=== PATIENT | female | born 1965 | race Caucasian/White ===

== ENCOUNTER 2017-04-27 13:19 | Emergency (ER) | payer OTHER ==
[~2017-04-27] VITALS: Ht 160 cm; Wt 97.7 kg
[2017-04-27 13:21] VITALS: TEMP 36.3; Ht 160 cm; Wt 97.7 kg
--- NOTE | 2017-04-27 14:36 | DIAGNOSTIC IMAGING REPORT ---
RIGHT WRIST W/NAVICULAR MIN 3 VIEWS CLINICAL HISTORY: Pain status post trauma COMPARISON: None. DISCUSSION: No acute fractures are visualized. There is mild narrowing of the radiocarpal joint. There is ulnar styloid erosion. There are cystic changes within the triquetrum. There are arthritic changes in the first carpal metacarpal joint. IMPRESSION: 1. No acute fractures 2. 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 Ulnar styloid erosion. Cystic change within the triquetrum. Electronically signed by: Collin Lizama M.D. 04/27/2017 2:34 PM Dictated Date/Time: 04/27/2017 2:33 PM
--- NOTE | 2017-04-27 14:46 | DIAGNOSTIC IMAGING REPORT ---
RIGHT HAND MIN 3 VIEWS ROUTINE CLINICAL HISTORY: 52 years-old Female presenting with R hand and wrist pain. TECHNIQUE: Frontal, oblique, and lateral views of the right hand were obtained. COMPARISON: 2010. FINDINGS: Radiocarpal and intercarpal articulations preserved. No malalignment. No acute fracture. IMPRESSION: 1. No acute osseous injury of the right hand. Electronically signed by: Lucio Noel M.D. 04/27/2017 2:45 PM Dictated Date/Time: 04/27/2017 2:43 PM
[2017-04-27] MEDS ORDERED: TRAM-10 PO (15:24)
[2017-04-27 15:31] VITALS: BP 130/101; PULSE 75; O2SAT 95
--- NOTE | 2017-04-27 21:11 | EMERGENCY ROOM VISIT NOTE ---
ED Visit Note First contact with patient: 13:49 Chief Complaint: Right hand and wrist pain. History of Present Illness: Ms. Juan is a 52-year-old white female who ambulates into the ED complaining of right hand and wrist pain. Patient denies any previous significant past medical history. Patient reports approximately 45 minutes ago she was playing on her cell phone. She reports she supinated her forearm and felling a popping sensation in the posterior aspect of the wrist and hand and developed severe pain. Currently patient is unable to describe her discomfort but reports that it severe and rates her discomfort 8/10. Her pain is located over the wrist and the posterior hand from the MCP joints to the wrist. Her pain worsens with palpation of this area, movements of the wrist and pronation and supination of the forearm. She has not identified any alleviating factors related to the pain. She has not taken any medications for pain prior to arrival at the hospital. Associated with her pain she reports she is having paresthesias through all aspects of the hands and fingers. She denies any fevers, chills, sweats, proximal forearm, elbow pain, shoulder pain, neck pain, hand weakness, skin eruptions, skin color changes. Review of Systems: As noted above in history of present illness. 5 body systems were reviewed and found to be negative as noted above. Past Medical History: Status post cholecystectomy and appendectomy. Current Medications: Patient denies. Allergies to Medications: Tylenol, codeine and aspirin. Social History: Patient is not employed; she feels safe in her home environment ; she admits to smoking one pack a cigarettes per day; she denies alcohol use. Physical Examination: Vital Signs: Date Time Temp Pulse Resp B/P (MAP) Pulse Ox O2 Delivery O2 Flow Rate FiO2 04/27/17 15:31 75 18 130/101 95 04/27/17 13:21 36.3 88 19 128/71 97 Room Air GENERAL: 52-year-old female in moderate distress due to pain, nontoxic-appearing , afebrile and hemodynamically stable. Patient tearful and anxious. NEUROLOGICAL: Awake, alert and oriented to person, place and time. Answering questions appropriately and following commands. SKIN: Warm, dry and pink. No soft tissue eruptions or trauma noted. RIGHT UPPER EXTREMITY: No gross bony deformity. No tenderness throughout the shoulder, elbow or proximal forearm. Mild tenderness over the distal radius and ulna and overall the carpals. There is also tenderness over the posterior aspect of all the metacarpals. I do not appreciate any bony deformity or crepitus. There is no swelling or erythema in this area. The rest of the hand is without tenderness but patient reports she is experiencing paresthesias. She was able to distinguish light sensations through all dermatomes of the hand. The fingers were warm and pink and capillary refill is brisk. ED Course: Patient is assessed as noted above. Patient's medication list was reviewed. Right Hand X-Rays: Was read by myself and the radiologist showing no acute or cranial fractures, dislocations or malignancies. Right Wrist X-Rays: Was read by myself and the radiologist showing no fractures or dislocations. Radiologist notes arthritic changes at the level of the first CMC joint, ulnar styloid erosions and cystic changes within the triquetrum. Patient was given ice for pain and comfort. Patient was placed in a wrist lacer splint. Patient was educated about today's findings and instructed on her treatment plan ; she verbalizes understanding and agreement with this plan. Clinical Impression: Right wrist and hand pain. Decision-Making: Initially my differential diagnosis I considered dislocation, fracture, tendinitis and other causes. Disposition: Patient discharged home in stable condition; prior to departure she subjectively reported she was feeling the same but looked much more comfortable and was no longer tearful. Plan: Patient was prescribed Ultram 50 mg every 6 hours as needed for pain. Comfort measures were discussed with the patient include splint use, ice and rest. Patient was encouraged to follow-up with orthopedics for specialty care and evaluation. Patient was encouraged return to the ED for worsening/uncontrolled pain, uncontrolled swelling, worsening finger paresthesias or she would develop any numbness or weakness.
== END 2017-04-27 15:33 | disposition home or self-care (01) ==
LOC: C.EDB 13:21 → C.EDD 15:33
DX: M79.641 Pain in right hand (principal); M25.531 Pain in right wrist; F17.210 Nicotine dependence, cigarettes, uncomplicated

== ENCOUNTER 2017-07-27 09:57 | Emergency (ER) | payer OTHER ==
[~2017-07-27] VITALS: Ht 160 cm; Wt 96.5 kg
[~2017-07-27 09:57] MED LIST: TRAM-10 PO
[2017-07-27 09:59] VITALS: TEMP 36.7; Ht 160 cm; Wt 96.5 kg
[2017-07-27 10:32] LABS: URINE APPEARANCE CLEAR (CLEAR); URINE BILIRUBIN NEG (NEG); URINE COLOR DK YELLOW; URINE EPITHELIAL CELL AUTO >30 /lpf (0-5); URINE NITRITE NEG (NEG); URINE SPECIFIC GRAVITY 1.022 (1.000-1.030); UROBILINOGEN NEG (NEG); ZZUR CULT IF INDIC CLEAN CATCH NO
[2017-07-27 10:32] LABS: BASO % 0.5 %; BASO ABS # 0.02 K/uL (0-0.2); COMPLETE YES; EOS % 3.9 %; HEMATOCRIT 39.7 % (37-47); LYMPH % 42.5 %; LYMPH ABS # 1.74 K/uL (1.2-3.4); MEAN CELL VOLUME 94.5 fL (80-100); MEAN CORPUSCULAR HEMOGLOBIN 32.1 pg (25-34); MEAN PLATELET VOLUME 9.7 fL (7.4-10.4); MONO % 13.4 %; NEUT % 39.7 %; PLATELET COUNT 194 K/uL (130-400); WHITE BLOOD COUNT 4.09 K/uL (4.8-10.8)
[2017-07-27 10:33] LABS: MANUAL MICROSCOPIC REQUIRED? NO; REVIEW REQ? NO
--- NOTE | 2017-07-27 10:34 | EMERGENCY ROOM VISIT NOTE ---
History Report prepared by Ely: Noé Garber Under the Supervision of: Dr. Paramjit Thrasher M.D. First contact with patient: 10:06 Chief Complaint: ABDOMINAL PAIN Stated Complaint: LOWER STOMACH PAIN Nursing Triage Summary: pt reports " I started with some lower back and low abdomen pain X 1 week, also my birdie harrison ,this started last night " . + nausea History of Present Illness The patient is a 52 year old female who presents to the Emergency Room with complaints of lower abdominal pain for the past week. She currently rates her discomfort as a 9/10 in severity. The patient additionally states that she has been having some back pain, and the pain is going down into her legs. She states that she is currently nauseous, and she has chest pain which started yesterday. The patient has a history of UTIs, and she states that this is similar. She additionally has a history of an appendectomy and cholecystectomy, and she denies any history of kidney stones. Pt denies LOC, headache, fevers, chills, diaphoresis, visual changes, neck pain, breathing difficulties, vomiting, back pain, melena, hematochezia, urinary symptoms, numbness, weakness , lymphadenopathy, rash, or other complaints. Source of History: patient Onset: a week ago Position: abdomen Symptom Intensity: 9/10 Timing: constant Associated Symptoms: + chest pain, + nausea Review of Systems See HPI for pertinent positives and negatives. A total of ten systems were reviewed and were otherwise negative. Past Medical & Surgical Medical Problems: (1) Appendectomy (2) Cholecystectomy (3) History of - tubal ligation Social History Smoking Status: Current Every Day Smoker Alcohol Use: none Marital Status: in relationship Housing Status: lives with significant other Occupation Status: unemployed Current/Historical Medications Scheduled PRN Dicyclomine Hcl (Bentyl), 20 MG PO Q6 PRN for Pain Allergies Coded Allergies: Acetaminophen (Unverified Allergy, Unknown, none, 07/27/17) Codeine (Verified Allergy, Unknown, 07/27/17) Replaces CODEINE PHOSP Penicillins (Verified Allergy, Unknown, 07/27/17) Aspirin (Verified Adverse Reaction, Mild, N/V, 07/27/17) Physical Exam Vital Signs Date Time Temp Pulse Resp B/P (MAP) Pulse Ox O2 Delivery O2 Flow Rate FiO2 07/27/17 12:37 70 20 132/75 95 10/13/17 12:18 65 07/27/17 11:25 70 20 128/68 98 Room Air 07/27/17 09:59 36.7 84 20 124/79 97 Room Air Physical Exam GENERAL: Awake, alert, uncomfortable-appearing, in no distress HENT: Normocephalic, atraumatic. Oropharynx unremarkable. EYES: Normal conjunctiva. Sclera non-icteric. NECK: Supple. No nuchal rigidity. FROM. No JVD. RESPIRATORY: Clear to auscultation. CARDIAC: Regular rate, normal rhythm. Extremities warm and well perfused. Pulses equal. ABDOMEN: Left upper, left lower, and suprapubic tenderness. Soft, non- distended. No rebound or guarding. No masses. RECTAL: Deferred. MUSCULOSKELETAL: Chest examination reveals no tenderness. The back is symmetrical on inspection without obvious abnormality. There is no CVA tenderness to palpation. No joint edema. LOWER EXTREMITIES: Calves are equal size bilaterally and non-tender. No edema. No discoloration. NEURO: Normal sensorium. No sensory or motor deficits noted. SKIN: No rash or jaundice noted. Medical Decision & Procedures ER Provider Diagnostic Interpretation: Radiology results as stated below per my review and radiologist interpretation: ABDOMEN AND PELVIS CT WITHOUT CONTRAST CT DOSE: 1044.27 mGycm HISTORY: lower abd pain radiating to the groin TECHNIQUE: Multiaxial CT images of the abdomen and pelvis were performed without contrast. A dose lowering technique was utilized adhering to the principles of ALARA. COMPARISON STUDY: Abdomen and pelvis CT 11/15/2012. FINDINGS: The lung bases are clear. No suspicious lytic or blastic osseous lesions. Cholecystectomy. The unenhanced liver, spleen pancreas, and adrenal glands are unremarkable. Normal right kidney. Stable focal scarring within the upper pole the left kidney. No renal or ureteral stones. No hydronephrosis. No retroperitoneal lymphadenopathy. The bladder, uterus, bilateral adnexa are unremarkable. Suboptimal evaluation for bowel pathology due to the lack of intravenous and oral contrast. However, there is no definite bowel wall thickening or obstruction. Colonic diverticulosis. IMPRESSION: 1. No definite bowel wall thickening or obstruction. 2. No renal or ureteral stones. No hydronephrosis. 3. Colonic diverticulosis. 4. Cholecystectomy. Electronically signed by: Truman Springer M.D. 07/27/2017 11:09 AM Dictated Date/Time: 07/27/2017 10:58 AM Laboratory Results 07/27/17 10:20 Red Blood Count 4.20, Mean Corpuscular Volume 94.5, Mean Corpuscular Hemoglobin 32.1, Mean Corpuscular Hemoglobin Concent 34.0, Mean Platelet Volume 9.7, Neutrophils (%) (Auto) 39.7, Lymphocytes (%) (Auto) 42.5, Monocytes (%) (Auto) 13.4, Eosinophils (%) (Auto) 3.9, Basophils (%) (Auto) 0.5, Neutrophils # (Auto ) 1.62, Lymphocytes # (Auto) 1.74, Monocytes # (Auto) 0.55, Eosinophils # (Auto ) 0.16, Basophils # (Auto) 0.02 07/27/17 10:20 Test 07/27/17 10:10 07/27/17 10:20 Urine Color DK YELLOW Urine Appearance CLEAR (CLEAR) Urine pH 6.0 (4.5-7.5) Urine Specific [place] 1.022 (1.000-1.030) Urine Protein NEG (NEG) Urine Glucose (UA) NEG (NEG) Urine Ketones NEG (NEG) Urine Occult Blood NEG (NEG) Urine Nitrite NEG (NEG) Urine Bilirubin NEG (NEG) Urine Urobilinogen NEG (NEG) Urine Leukocyte Esterase SMALL (NEG) Urine WBC (Auto) 1-5 /hpf (0-5) Urine RBC (Auto) 0-4 /hpf (0-4) Urine Hyaline Casts (Auto) 1-5 /lpf (0-5) Urine Epithelial Cells (Auto) >30 /lpf (0-5) Urine Bacteria (Auto) NEG (NEG) White Blood Count 4.09 K/uL (4.8-10.8) Red Blood Count 4.20 M/uL (4.2-5.4) Hemoglobin 13.5 g/dL (12.0-16.0) Hematocrit 39.7 % (37-47) Mean Corpuscular Volume 94.5 fL (80-100) Mean Corpuscular Hemoglobin 32.1 pg (25-34) Mean Corpuscular Hemoglobin Concent 34.0 g/dl (32-36) Platelet Count 194 K/uL (130-400) Mean Platelet Volume 9.7 fL (7.4-10.4) Neutrophils (%) (Auto) 39.7 % Lymphocytes (%) (Auto) 42.5 % Monocytes (%) (Auto) 13.4 % Eosinophils (%) (Auto) 3.9 % Basophils (%) (Auto) 0.5 % Neutrophils # (Auto) 1.62 K/uL (1.4-6.5) Lymphocytes # (Auto) 1.74 K/uL (1.2-3.4) Monocytes # (Auto) 0.55 K/uL (0.11-0.59) Eosinophils # (Auto) 0.16 K/uL (0-0.5) Basophils # (Auto) 0.02 K/uL (0-0.2) RDW Standard Deviation 43.4 fL (36.4-46.3) RDW Coefficient of Variation 12.7 % (11.5-14.5) Immature Granulocyte % (Auto) 0.0 % Immature Granulocyte # (Auto) 0.00 K/uL (0.00-0.02) Anion Gap 8.0 mmol/L (3-11) Est Creatinine Clear Calc Drug Dose 72.8 ml/min Estimated GFR () 75.0 Estimated GFR (Non- 64.7 BUN/Creatinine Ratio 13.5 (10-20) Calcium Level 8.7 mg/dl (8.5-10.1) Total Bilirubin 0.4 mg/dl (0.2-1) Direct Bilirubin < 0.1 mg/dl (0-0.2) Aspartate Amino Transf (AST/SGOT) 30 U/L (15-37) Alanine Aminotransferase (ALT/SGPT) 35 U/L (12-78) Alkaline Phosphatase 138 U/L (45-117) Troponin I < 0.015 ng/ml (0-0.045) Total Protein 7.5 gm/dl (6.4-8.2) Albumin 3.8 gm/dl (3.4-5.0) Lipase 133 U/L (73-393) Laboratory results reviewed by me ECG Indication: abdominal pain Rate (beats per minute): 76 Rhythm: normal sinus Findings: no acute ischemic change, no ectopy ED Course 1006: The patient was evaluated in room B11. A complete history and physical exam was performed. 1153: I reevaluated the patient, and she is doing well. 1217: I reevaluated the patient. Discussed results and discharge instructions: She verbalized understanding and agreement. The patient is ready for discharge. Medical Decision Triage Nursing notes reviewed. The patient's presentation and history were concerning for left sided abdominal pain and urinary symptoms. Etiologies such as UTI,diverticulitis, obstruction, inflammatory bowel disease , renal colic, PUD, biliary pathology, pancreatitis, mesenteric ischemia, aortic pathology, infections, genitourinary, perforated viscus, appendicitis, as well as others were entertained. The patient was evaluated. She was offered pain medication but declined. Blood work and imaging were ordered. Urinalysis performed. CT imaging did not reveal any evidence of intra-abdominal pathology. Specifically no diverticulitis or colitis over the left upper and lower side of her abdomen where she was tender. A urine culture is pending. The patient is doing very well. She notes having a change in her bowels recently and having some issues with constipation. There is not a significant fecal load on CT scan. I did discuss use a stool softener. She will also be given Bentyl. If she worsens in any way she will be back. She does not have any symptoms the pain just radiated towards the groin from the left side of her abdomen. The patient has a negative ECG and troponin. She notes stress causes her to get this pain. She had symptoms all day today. By the evaluation outlined above other emergent etiologies such as those listed in the differential, as well as others, were deemed relatively unlikely. The patient was educated about the findings as listed above. All questions were answered and the patient was pleased with the treatment. Return instructions were outlined and the patient was discharged in stable condition. The patient was referred to her PCP for follow-up for a recheck of the current condition. Medication Reconcilliation Current Medication List: was personally reviewed by me Blood Pressure Screening Patient's blood pressure: Normal blood pressure Impression Primary Impression: Left sided abdominal pain Additional Impressions: Symptoms of urinary tract infection Left sided chest pain Scribe Attestation The scribe's documentation has been prepared under my direction and personally reviewed by me in its entirety. I confirm that the note above accurately reflects all work, treatment, procedures, and medical decision making performed by me. Departure Information Dispostion Home / Self-Care Prescriptions Dicyclomine Hcl (BENTYL) 20 Mg Tab 20 MG PO Q6 Y for Pain, #20 TAB Prov: Paramjit Thrasher MD 07/27/17 Referrals No Doctor, Assigned (PCP) Forms Call Back Authorization, HOME CARE DOCUMENTATION FORM, IMPORTANT VISIT INFORMATION Patient Instructions My [facility] Additional Instructions ABDOMINAL PAIN INSTRUCTIONS: Bentyl(dicyclomine) 20 mg: Take one tablet 4 times daily as needed for abdominal pain. Discontinue this medication if you develop any rash, itching, increased abdominal pain, heartburn, increased nausea, constipation, or as needed. Rest and drink plenty of fluids as tolerated. Slow sips of water or sports drinks are recommended instead of large amounts all at once. Continue current medications. Once your stomach is settled start with a clear liquid diet (jello, soup broth, etc.) and then advance as tolerated. You should avoid full, heavy meals for about 24 hrs from the time your symptoms resolved. Return to the ER immediately for worsening or persistent abdominal pain, vomiting, fevers, chest pains, difficulty breathing, black or bloody stools, worsening of your condition, or as needed. Follow up with your primary physician first thing next week for recheck of your current condition. Problem Qualifiers
--- NOTE | 2017-07-27 11:10 | DIAGNOSTIC IMAGING REPORT ---
ABDOMEN AND PELVIS CT WITHOUT CONTRAST CT DOSE: 1044.27 mGycm HISTORY: lower abd pain radiating to the groin TECHNIQUE: Multiaxial CT images of the abdomen and pelvis were performed without contrast. A dose lowering technique was utilized adhering to the principles of ALARA. COMPARISON STUDY: Abdomen and pelvis CT 11/15/2012. FINDINGS: The lung bases are clear. No suspicious lytic or blastic osseous lesions. Cholecystectomy. The unenhanced liver, spleen pancreas, and adrenal glands are unremarkable. Normal right kidney. Stable focal scarring within the upper pole the left kidney. No renal or ureteral stones. No hydronephrosis. No retroperitoneal lymphadenopathy. The bladder, uterus, bilateral adnexa are unremarkable. Suboptimal evaluation for bowel pathology due to the lack of intravenous and oral contrast. However, there is no definite bowel wall thickening or obstruction. Colonic diverticulosis. IMPRESSION: 1. No definite bowel wall thickening or obstruction. 2. No renal or ureteral stones. No hydronephrosis. 3. Colonic diverticulosis. 4. Cholecystectomy. Electronically signed by: Truman Springer M.D. 07/27/2017 11:09 AM Dictated Date/Time: 07/27/2017 10:58 AM
[2017-07-27 11:39] LABS: ALT/SGPT 35 U/L (12-78); AST/SGOT 30 U/L (15-37); BLOOD UREA NITROGEN 14 mg/dl (7-18); BUN/CREATININE RATIO 13.5 (10-20); CALCIUM 8.7 mg/dl (8.5-10.1); CARBON DIOXIDE 24 mmol/L (21-32); CHLORIDE 109 mmol/L (98-107); GLUCOSE 87 mg/dl (70-99); SODIUM 141 mmol/L (136-145)
[2017-07-27 11:44] LABS: ALKALINE PHOSPHATASE 138 U/L (45-117)
[2017-07-27] MEDS ORDERED: DICY20TA35 PO (12:15)
[2017-07-27 12:37] VITALS: BP 132/75; PULSE 70; O2SAT 95
== END 2017-07-27 12:38 | disposition home or self-care (01) ==
LOC: C.EDB 09:58
DX: R10.32 Left lower quadrant pain (principal); R10.12 Left upper quadrant pain; M54.9 Dorsalgia, unspecified; R11.0 Nausea; R07.9 Chest pain, unspecified; F17.200 Nicotine dependence, unspecified, uncomplicated; Z87.440 Personal history of urinary (tract) infections; Z98.51 Tubal ligation status

== ENCOUNTER 2017-08-09 10:10 | Emergency (ER) | payer OTHER ==
[~2017-08-09] VITALS: Ht 160 cm; Wt 98.0 kg
[2017-08-09 10:25] VITALS: TEMP 36.9; Ht 160 cm; Wt 98.0 kg
[2017-08-09] MEDS ORDERED: IBUPROFEN 200 MG TAB PO STA (11:08)
--- NOTE | 2017-08-09 11:52 | EMERGENCY ROOM VISIT NOTE ---
ED Visit Note First contact with patient: 11:01 CHIEF COMPLAINT: knee pain HISTORY OF PRESENT ILLNESS: This 52-year-old female patient presents to the emergency department 2 days after sustaining an injury to the right knee when she accidentally fell into a hole twisting it. The patient denies any other injuries besides their knee. The patient denies swelling or bruising. There is pain with any movement of the knee. They rate the pain as throbbing and 5/ 10. The patient states they are not to walk on it. No numbness or tingling. No previous injuries to this knee. No ankle, foot or hip pain. REVIEW OF SYSTEMS: A 6 system review of systems was completed with positives and pertinent negatives listed in the HPI. ALLERGIES: Tylenol, aspirin, codeine, penicillin, morphine MEDICATIONS: Reviewed PMH: Status post cholecystectomy appendectomy SOCIAL HISTORY: Lives at home with family PHYSICAL EXAM: Vital Signs: Reviewed Nurse's notes, vital signs stable. GENERAL : 52-year-old female, no acute distress, but appears in pain, well-developed, well-nourished. MENTAL STATUS: Alert, oriented to person place and time, and cooperative. MUSCULOSKELETAL: The right knee is not swollen. There is no ecchymosis. There is no joint effusion present. The patient is tender over the medial aspect of the knee. There is no joint line tenderness. The patella does not subluxate. Range of motion is limited secondary to pain. Strength of the quads and hamstrings is 5/5. Ayaan's is negative. Ankush's and Anterior Drawer tests are negative. There is pain with varus and valgus stressing. The foot and toes are warm and well-perfused. Dorsalis pedis pulse 2+. Sensation to pain and light touch is intact. Capillary refill less than 2 seconds. EMERGENCY DEPARTMENT COURSE: I examined the patient. She was given ibuprofen 400 mg for pain X-rays of the right knee were reviewed IMPRESSION: No acute bony abnormality is seen in the right knee. Electronically signed by: Charles Rivas M.D. 08/09/2017 12:02 PM Dictated Date/Time: 08/09/2017 12:01 PM The patient was placed in a knee immobilizer under my direction and the position was satisfactory. The patient was instructed on the use of crutches. The patient was discharged home in good condition. DIAGNOSIS: Right knee sprain DISCHARGE INSTRUCTIONS: Ice and elevate knee for swelling and pain. Wear knee immobilizer when up and about. Use crutches - minimal weight on foot. Ibuprofen 400 mg every 6 hrs for pain. If there is no improvement in the pain within the next 3-5 days, please contact your orthopedic doctor. A number has been provided. Please return to the emergency department with any new or worsening symptoms. This chart was completed in part utilizing [employer] Speech Voice Recognition software. Attempts were made to minimize the grammatical errors, random word insertions, pronoun errors and incomplete sentences. Any formal questions or concerns about the content, text or information contained within the body of this dictation should be directly addressed to the provider for clarification.
--- NOTE | 2017-08-09 12:04 | DIAGNOSTIC IMAGING REPORT ---
RIGHT KNEE 3 VIEWS CLINICAL HISTORY: Right knee injury. FINDINGS: AP, crosstable lateral, and sunrise views of the right knee are obtained. No prior studies are available for comparison at the time of dictation. The skeletal structures are well mineralized. No fracture is seen. The joint spaces of the knee are preserved. There is no joint effusion. The overlying soft tissues are within normal limits. IMPRESSION: No acute bony abnormality is seen in the right knee. Electronically signed by: Charles Rivsa M.D. 08/09/2017 12:02 PM Dictated Date/Time: 08/09/2017 12:01 PM
[2017-08-09 12:40] VITALS: BP 114/66; PULSE 71; O2SAT 96
== END 2017-08-09 13:02 | disposition home or self-care (01) ==
LOC: C.EDB 10:11 → C.EDD 13:02
DX: S83.91XA Sprain of unspecified site of right knee, initial encounter (principal); X50.9XXA Other and unspecified overexertion or strenuous movements or postures, initial encounter

== ENCOUNTER 2017-11-06 08:34 | Emergency (ER) | payer OTHER ==
[~2017-11-06] VITALS: Ht 160 cm; Wt 98.0 kg
[2017-11-06 08:39] VITALS: TEMP 36.6; Ht 160 cm; Wt 98.0 kg
[2017-11-06 09:29] VITALS: BP 150/68; PULSE 74; O2SAT 98
--- NOTE | 2017-11-06 17:15 | EMERGENCY ROOM VISIT NOTE ---
History First contact with patient: 08:46 Chief Complaint: OTHER COMPLAINT Stated Complaint: EXPOSURE History of Present Illness The patient is a 52 year old female who presents to the Emergency Room with complaints of exposure to Freon 12. The patient reports that she was attempting to scrape ice from a refrigerator when she hit the coil and punctured it. The patient reports she was sprayed on her clothing and hair. The patient is uncertain but thinks that she may have gotten a little bit of the spray in her left eye and mouth. She denies any excessive tearing or pain of the eye. She denies any runny nose,/tongue/throat swelling, cough, shortness of breath or chest pain. The patient denies any pain on my exam. She presents via [facility] ambulance for evaluation. Review of Systems 10 system review was performed and was negative except for pertinent positives and negatives as indicated in history of present illness Past Medical/Surgical History Medical Problems: (1) Appendectomy (2) Cholecystectomy (3) History of - tubal ligation Family History Unremarkable Social History Smoking Status: Current Every Day Smoker Alcohol Use: none Marital Status: in relationship Housing Status: lives with significant other Occupation Status: unemployed Current/Historical Medications No Active Prescriptions or Reported Meds Physical Exam Vital Signs Date Time Temp Pulse Resp B/P (MAP) Pulse Ox O2 Delivery O2 Flow Rate FiO2 11/06/17 09:29 74 18 150/68 98 11/06/17 08:39 36.6 78 18 146/68 98 Room Air Physical Exam CONSTITUTIONAL: Healthy and well nourished. Alert and oriented X 3 with positive affect. Patient does not appear in any acute distress. HEENT: Normocephalic, atraumatic. Pupils equal, round and reactive. No facial erythema, edema or open wounds. The patient has no erythema or conjunctival injection of the left eye. Nares are clear. OROPHARYNX: No intraoral erythema or angioedema noted. NECK: Full active range of motion without discomfort. RESPIRATORY: Clear to auscultation bilaterally with no wheezing, crackles, rhonchi or stridor. CARDIOVASCULAR: Regular rate and rhythm with no murmurs, rubs or gallops. MUSCULOSKELETAL: Full range of motion of all joints without discomfort. INTEGUMENTARY: No rash or other significant dermatologic conditions noted. NEUROLOGIC: No focal neurologic deficits noted. Medical Decision & Procedures ED Course Patient history and physical exam were performed. Nurse's notes were reviewed. Vital signs were reviewed and were normal. The patient does not appear in any acute distress. She appears in no respiratory distress, and has no evidence for soft tissue irritation, conjunctival injection or angioedema. Nursing did contact poison control who suggested that irrigation be performed of the eyes if the patient had any significant eye involvement area the patient denies any eye discomfort, therefore I do not feel that irrigation is needed. She denies any other symptoms at this time. I did encourage her to go home and shower to get all remaining residue from her hair and clothing. She was instructed to return to the emergency department any developing symptoms of concern, including facial swelling, difficulty breathing, wheezing, chest pain or other concerning symptoms. The patient was happy with plan of care, and voiced understanding of all discharge instructions. Medical Decision Impression Primary Impression: Freon exposure Departure Information Dispostion Home / Self-Care Condition GOOD Prescriptions No Active Prescriptions or Reported Meds Forms HOME CARE DOCUMENTATION FORM, IMPORTANT VISIT INFORMATION Patient Instructions My [facility] [email or web address] Additional Instructions Suggest showering when he gets home, and changed to fresh clothing. Return to the emergency department for any developing eye discomfort, shortness of breath, chest pain or worsening cough.
== END 2017-11-06 09:30 | disposition home or self-care (01) ==
LOC: EDBD 08:34 → C.EDA 08:34
DX: Z77.098 Contact with and (suspected) exposure to other hazardous, chiefly nonmedicinal, chemicals (principal); F17.200 Nicotine dependence, unspecified, uncomplicated

== ENCOUNTER 2017-11-28 10:12 | Emergency (ER) | payer OTHER ==
[~2017-11-28] VITALS: Ht 160 cm; Wt 96.0 kg
[2017-11-28 10:24] VITALS: Ht 160 cm; Wt 96.0 kg
[2017-11-28] MEDS ORDERED: OXYCODONE HCL IR 5 MG TAB (IMMEDIATE RELEASE) PO STA (10:54)
[2017-11-28] MEDS ORDERED: IBUPROFEN 600 MG TAB PO STA (11:01)
--- NOTE | 2017-11-28 11:23 | DIAGNOSTIC IMAGING REPORT ---
L KNEE 3 VIEWS CLINICAL HISTORY: Left knee pain following fall COMPARISON: None FINDINGS: Alignment of the left knee is anatomic. No fracture or joint effusion is present. There is minimal spurring of the patella at the insertion of quadriceps. Left knee joint spaces are preserved. IMPRESSION: No acute fracture or joint effusion of the left knee. Electronically signed by: Liban Wilhelm M.D. 11/28/2017 11:21 AM Dictated Date/Time: 11/28/2017 11:21 AM
--- NOTE | 2017-11-28 11:24 | DIAGNOSTIC IMAGING REPORT ---
L FEMUR 2 VIEWS ROUTINE CLINICAL HISTORY: L knee/upper leg pain. COMPARISON: CT of the abdomen and pelvis July 27, 2017. FINDINGS: No acute fracture of the left femur is identified. Alignment of left hip and left knee is anatomic. There is mild osteophytosis of the left hip. IMPRESSION: No acute fracture of the left femur. Electronically signed by: Liban Wilhelm M.D. 11/28/2017 11:22 AM Dictated Date/Time: 11/28/2017 11:22 AM
[2017-11-28 12:07] VITALS: BP 137/63; PULSE 66; TEMP 36.5; O2SAT 99
--- NOTE | 2017-11-28 14:28 | EMERGENCY ROOM VISIT NOTE ---
History First contact with patient: 10:28 Chief Complaint: FALL Stated Complaint: HURT LEFT KNEE/HIP,FALL History of Present Illness The patient is a 52 year old female who presents to the Emergency Room with complaints of left lower extremity pain after she slipped and fell onto ice around 7:30 AM this morning. The patient reports falling directly on her left left knee, but has pain radiating into the upper leg and hip region. She denies head injury, back pain or paresthesias/numbness of the lower extremities. She rates her discomfort a 10 out of 10. Tetanus immunization is up-to-date. Review of Systems 10 system review was performed and was negative except for pertinent positives and negatives as indicated in history of present illness Past Medical/Surgical History Medical Problems: (1) Appendectomy (2) Cholecystectomy (3) History of - tubal ligation Family History Unremarkable Social History Smoking Status: Current Every Day Smoker Alcohol Use: none Marital Status: in relationship Housing Status: lives with significant other Occupation Status: unemployed Current/Historical Medications No Active Prescriptions or Reported Meds Physical Exam Vital Signs Date Time Temp Pulse Resp B/P (MAP) Pulse Ox O2 Delivery O2 Flow Rate FiO2 11/28/17 12:07 36.5 66 18 137/63 99 Room Air 11/28/17 11:19 36.6 72 18 149/73 95 Room Air 11/28/17 10:24 36.7 80 18 132/84 97 Room Air Physical Exam CONSTITUTIONAL: Healthy and well nourished. Alert and oriented X 3 with positive affect. Patient does not appear in any acute distress on exam. HEENT: Normocephalic, atraumatic. Pupils equal, round and reactive. NECK: Full active range of motion without discomfort. RESPIRATORY: Clear to auscultation bilaterally with no wheezing, crackles, rhonchi or stridor. CARDIOVASCULAR: Regular rate and rhythm with no murmurs, rubs or gallops. GASTROINTESTINAL: Bowel sounds present in all quadrants. Soft and nontender to palpation. MUSCULOSKELETAL: Examination shows a superficial abrasion just superior to the tibial tubercle. The patient is able to straight leg raise. She has generalized tenderness to palpation about the entire anterior knee region. She also has discomfort through the proximal thigh and lateral hip region. Pelvis stable with rock. No focal tenderness to palpation through the central lumbar spine or SI joints. INTEGUMENTARY: No rash or other significant dermatologic conditions noted. NEUROLOGIC: No focal neurologic deficits noted. Left lower extremity is sensory intact. Medical Decision & Procedures ER Provider Diagnostic Interpretation: My interpretation of left knee x-rays does not show any acute fractures, dislocation or joint effusion. Radiologist report is as follows: L KNEE 3 VIEWS CLINICAL HISTORY: Left knee pain following fall COMPARISON: None FINDINGS: Alignment of the left knee is anatomic. No fracture or joint effusion is present. There is minimal spurring of the patella at the insertion of quadriceps. Left knee joint spaces are preserved. IMPRESSION: No acute fracture or joint effusion of the left knee. My interpretation of left femur x-rays does not show any acute fractures or hip dislocation. Radiologist report is as follows: L FEMUR 2 VIEWS ROUTINE CLINICAL HISTORY: L knee/upper leg pain. COMPARISON: CT of the abdomen and pelvis July 27, 2017. FINDINGS: No acute fracture of the left femur is identified. Alignment of left hip and left knee is anatomic. There is mild osteophytosis of the left hip. IMPRESSION: No acute fracture of the left femur. Medications Administered Medications (Trade) Dose Ordered Sig/Sisi Route Start Time Stop Time Status Last Admin Dose Admin Ibuprofen (Motrin Tab) 600 mg NOW STAT PO 11/28/17 11:01 11/28/17 11:02 DC 11/28/17 11:19 600 MG ED Course Patient history and physical exam were performed. Nurse's notes were reviewed. The patient appears in moderately severe discomfort. An order was placed for oxycodone 5 mg, but the patient refused, and requested Motrin instead. She was administered ibuprofen 600 mg. X-rays of the left knee and femur were both normal. The patient was encouraged to intermittently apply ice to areas of discomfort. She was also instructed to keep her wound clean and covered with an antibiotic ointment and dressing until symptoms improve. A knee immobilizer and walker were dispensed. The patient was encouraged to be careful with ambulation that she does not fall. I did encourage her to follow-up with orthopedics if symptoms are not improving within the next week. Ibuprofen as needed for pain. The patient refused any additional prescription analgesics, was happy with plan of care, and rated her discomfort a 4 out of 10 at the time of discharge. Medical Decision Medication Reconcilliation Current Medication List: was personally reviewed by me Blood Pressure Screening Patient's blood pressure: Normal blood pressure Impression Primary Impression: Contusion of left knee Additional Impressions: Left hip pain Fall due to slipping on ice or snow Departure Information Prescriptions No Active Prescriptions or Reported Meds Referrals Young Bustamnate M.D. (PCP) Patient Instructions My [facility] Problem Qualifiers Primary Impression: Contusion of left knee Encounter type: initial encounter Qualified Codes: S80.02XA - Contusion of left knee, initial encounter Additional Impressions: Fall due to slipping on ice or snow Encounter type: initial encounter Qualified Codes: W00.9XXA - Unspecified fall due to ice and snow, initial encounter
== END 2017-11-28 12:18 | disposition home or self-care (01) ==
LOC: C.EDB 10:13 → C.EDA 12:18
DX: S80.02XA Contusion of left knee, initial encounter (principal); M25.552 Pain in left hip; W00.9XXA Unspecified fall due to ice and snow, initial encounter; F17.200 Nicotine dependence, unspecified, uncomplicated